=== PATIENT | male | born 1945 | race Caucasian/White ===

== ENCOUNTER → 2020-09-04 14:51 | Outpatient (BNVA) | payer OTHER, SELFPAY | PROVIDERS: Referring Provider Family Medicine; Visit Provider Orthopaedic Surgery | DX: M47.897 Other spondylosis, lumbosacral region (principal); M47.896 Other spondylosis, lumbar region; M54.2 Cervicalgia | CPT/HCPCS: 72120 ==

== ENCOUNTER 2021-12-22 14:07 | Outpatient (CLI) | payer OTHER, SELFPAY ==
--- NOTE | 2021-12-22 | USCV_ITS ---
Julio Villalobos Age: 76 Gender: M : 1945 Exam Date: 12/22/2021 14:31 Ordering Phys: John Manzo DO Technologist: Saul Caballero Exam Location: [facility] – [place] Indication: leg pain claudication Risk Factors: Previous Vascular Surgery: RIGHT LEFT BP: 135.0 / 73.00 BP: 135.0/ 73.00 0 0 Waveform Velocity (cm/s) Velocity (cm/s) Waveform Triphasic 164.7 Iliac Prox 78.1 Triphasic Triphasic 77.1 Iliac Mid 78.1 Triphasic Triphasic 79.1 Iliac Distal 72.0 Triphasic Triphasic 86.2 RN UROLOGY 87.2 Triphasic Triphasic 85.2 SFA Prox 69.0 Triphasic Triphasic 84.2 SFA Mid 76.1 Triphasic Triphasic SFA Dist Triphasic 66.9 78.1 Triphasic 51.9 POP 57.8 Triphasic Biphasic 43.0 CUSTOMER SUPPORT TECHNICIAN 56.8 Biphasic Biphasic 36.3 DPA 58.8 Biphasic 1.1 GRISEL 1.1 FINDINGS Resting GRISEL of 1.1 bilaterally Normal arterial Doppler flow velocities Near normal arterial Doppler waveforms CONCLUSIONS Normal resting ABIs bilaterally No significant arterial obstruction, based on the above findings Dr Jensen Garcia MD [facility] (Electronically Signed) Final Date: 24 December 2021 08:00 S
== END 2021-12-22 14:08 | disposition home or self-care (01) ==
PROVIDERS: PCP Family Medicine; Visit Provider Emergency Medicine Emergency Medical Services
DX: I73.9 Peripheral vascular disease, unspecified (principal)
CPT/HCPCS: 93925